=== PATIENT | female | born 1950 | race Caucasian/White ===

== ENCOUNTER 2019-11-04 10:05 | Outpatient (CLI) | payer MEDICARE, SELFPAY ==
--- NOTE | 2019-11-04 10:17 | MM_ITS ---
WS: [id number] SCREENING DIGITAL MAMMOGRAM WITH CAD HISTORY: SCREENING COMPARISON: 10/04/2018 and 10/02/2017 Bilateral CC and MLO views submitted. Computer aided detection analyzed. Breast composition: There are scattered areas of fibroglandular density. No suspicious masses, microc alcifications or architectural distortion. MM/[id number] IMPRESSION: BI-RADS: 1-Negative FOLLOW UP: 1 Year Follow-up
== END 2019-11-04 10:06 | disposition home or self-care (01) ==
LOC: RADSHAW 10:05
PROVIDERS: Family Provider Family Medicine; PCP Family Medicine; Visit Provider Family Medicine
DX: Z12.31 Encounter for screening mammogram for malignant neoplasm of breast (principal)
CPT/HCPCS: 77067

== ENCOUNTER → 2020-07-16 15:45 | Outpatient (BNVA) | payer MEDICARE, SELFPAY | PROVIDERS: Family Provider Family Medicine; PCP Family Medicine; Visit Provider Nurse Practitioner Family | DX: S69.90XA Unspecified injury of unspecified wrist, hand and finger(s), initial encounter (principal); W19.XXXA Unspecified fall, initial encounter; M19.031 Primary osteoarthritis, right wrist | CPT/HCPCS: 73110 ==

== ENCOUNTER 2021-02-09 08:41 | Outpatient (CLI) | payer MEDICARE, SELFPAY ==
--- NOTE | 2021-02-09 08:51 | MM_ITS ---
WS: [id number] BILATERAL DIGITAL SCREENING MAMMOGRAPHY WITH CAD CLINICAL INFORMATION: SCREENING HISTORY: Screening mammogram. No current complaints. COMPARISON: November 22, 2019 TECHNIQUE: Bilateral CC and MLO views. FINDINGS: Scattered fibroglandular densities bilaterally. No suspicious focal mass, asymmetry, calcifications, or architectural distortion. No evidence of malignancy. MM/[id number] IMPRESSION: BI-RADS: 1-Negative FOLLOW UP: 1 Year Follow-up Recommend return to annual screening mammography.
== END 2021-02-09 08:42 | disposition home or self-care (01) ==
PROVIDERS: PCP Family Medicine; Visit Provider Family Medicine
DX: Z12.31 Encounter for screening mammogram for malignant neoplasm of breast (principal)
CPT/HCPCS: 77067

== ENCOUNTER 2022-03-09 10:48 | Outpatient (CLI) | payer MEDICARE, SELFPAY ==
--- NOTE | 2022-03-09 10:53 | MM_ITS ---
WS: [id number] BILATERAL SCREENING DIGITAL BREAST TOMOSYNTHESIS MAMMOGRAM WITH CAD HISTORY: SCREENING COMPARISON: 10/04/2018, 10/02/2017, 02/09/2021 Bilateral CC and MLO views with tomosynthesis and synthetic mammography submitted. Computer aided det ection analyzed. Breast composition: There are scattered areas of fibroglandular density. No suspicious masses, microc alcifications or architectural distortion. No change in appearance of either breast. Mild asymmetry a nterior RIGHT breast. MM/[place] [id number] IMPRESSION: BI-RADS: 2-Benign FOLLOW UP: 1 Year Follow-up
== END 2022-03-09 10:49 | disposition home or self-care (01) ==
PROVIDERS: PCP Family Medicine; Visit Provider Family Medicine
DX: Z12.31 Encounter for screening mammogram for malignant neoplasm of breast (principal)
CPT/HCPCS: 77063; 77067

== ENCOUNTER → 2022-10-20 09:26 | Outpatient (BNVA) | payer MEDICARE, SELFPAY | PROVIDERS: PCP Family Medicine; Visit Provider Family Medicine | DX: Z13.6 Encounter for screening for cardiovascular disorders (principal); Z00.00 Encounter for general adult medical examination without abnormal findings; Z13.0 Encounter for screening for diseases of the blood and blood-forming organs and certain disorders involving the immune mechanism | CPT/HCPCS: 80053; 80061; 85025 ==

== ENCOUNTER → 2022-11-21 07:56 | Outpatient (BNVA) | payer MEDICARE, SELFPAY | PROVIDERS: PCP Family Medicine; Visit Provider Family Medicine | DX: Z00.00 Encounter for general adult medical examination without abnormal findings (principal) | CPT/HCPCS: 85025 ==

== ENCOUNTER 2022-12-21 07:46 | Oncology outpatient (recurring) (ONCR) | payer MEDICARE, SELFPAY ==
[2022-12-21 09:10] LABS: Basophils % 0.5 %; Eosinophils # 0.1 10^3/uL (0.0-0.8); Hematocrit 42.3 % (37.0-47.0); Hemoglobin 14.2 g/dL (11.5-15.3); Lymphocytes # 1.2 10^3/uL (0.8-4.8); Lymphocytes % 30.4 %; Mean Corpuscular HGB Conc 33.6 g/dL (30.0-36.0); Mean Corpuscular Hemoglobin 33.7 pg (28.0-34.0); Mean Corpuscular Volume 100.5 fl (81-99); Mean Platelet Volume 10.4 fL (7.4-10.4); Monocytes # 0.3 10^3/uL (0.2-0.9); Monocytes % 6.9 %; Neutrophils # 2.38 10^3/uL (1.8-7.7); Nucleated Red Blood Cells % 0 %; Platelet Count 197 10^3/cmm (130-400); Red Blood Count 4.21 10^6/uL (4.1-5.3)
[2022-12-21 09:18] LABS: Erythrocyte Sedimentation Rate 4 mm/hr (0-15)
[2022-12-21 09:57] LABS: LAB Peripheral Smear Sent for Review
[2022-12-21 09:58] LABS: Alanine Aminotransferase 8 U/L (0-33); Albumin Level 4.4 g/dL (3.5-5.2); Alkaline Phosphatase 66 U/L (35-105); Anion Gap 12.9 (5-19); Aspartate Amino Transferase 21 U/L (0-32); Blood Urea Nitrogen 14 mg/dL (8-23); Calcium 9.4 mg/dL (8.5-10.5); Carbon Dioxide 29 mmol/L (22-29); Chloride 102 mmol/L (98-107); Globulin 3.1 g/dL (1.3-4.6); Glucose 92 mg/dL (65-115); Lactate Dehydrogenase 184 U/L (135-214); Osmolality Calculated 290 mOsm/kg (285-295); Potassium 3.9 mmol/L (3.5-5.1); Sodium 140 mmol/L (136-145); Total Bilirubin 0.5 mg/dL (0.15-1.2); Total Protein 7.5 g/dL (6.6-8.7); Vitamin B12 467 pg/mL (232-1245)
[2022-12-23 12:55] LABS: Anti-Nuclear Antibody Screen POSITIVE (NEGATIVE)
[2022-12-23 12:59] LABS: Anti-Nuclear AB Pattern #2 Nuclear, Centromere; Anti-Nuclear Antibody Pattern Nuclear, Speckled
== END 2023-01-01 23:59 | disposition home or self-care (01) ==
PROVIDERS: PCP Family Medicine; Visit Provider Internal Medicine Medical Oncology
DX: D70.9 Neutropenia, unspecified (principal)
CPT/HCPCS: 36415; 80053; 82607; 83615; 85025; 85651; 86038; 86140; 99204

== ENCOUNTER 2023-01-18 15:25 | Outpatient (CLI) | payer MEDICARE, SELFPAY ==
--- NOTE | 2023-01-18 15:36 | XR_ITS ---
WS: [id number] DEXA (DUAL ENERGY X-RAY ABSORPTIOMETRY) Bone mineral density was performed using a deskwolf machine. HISTORY: screen osteoporosis COMPARISON: 09/29/2016 Lumbar spine BMD (L1-L4): 1.166 g/cm2 T score: -0.1 Z score: 1.6 Total hip BMD: Left: 0.978 g/cm2. T score: -0.2 Z score: 1.4 Right: 0.873 g/cm2. T score: -1.1 Z score: 0.5 10 year probability of a major osteoporotic fracture is 14.4%. Compared to the prior study from 09/29/2016. Lumbar spine bone mineral density has decreased by 3.5%. Bilateral hips bone mineral density has decreased by 7.1%. XR/XR DEXA axial skeleton* [id number] IMPRESSION: OSTEOPENIA based upon the WHO classification for females. Significant decrease in bone mineral density within both the lumbar spine and h ips since the prior study.
== END 2023-01-18 15:26 | disposition home or self-care (01) ==
PROVIDERS: PCP Family Medicine; Visit Provider Family Medicine
DX: Z13.820 Encounter for screening for osteoporosis (principal); Z78.0 Asymptomatic menopausal state; M85.80 Other specified disorders of bone density and structure, unspecified site; Z00.00 Encounter for general adult medical examination without abnormal findings
CPT/HCPCS: 77080; 85025

== ENCOUNTER → 2023-01-20 11:12 | Outpatient (BNVA) | payer MEDICARE, SELFPAY | PROVIDERS: PCP Family Medicine; Visit Provider Family Medicine | DX: M85.80 Other specified disorders of bone density and structure, unspecified site (principal) | CPT/HCPCS: 82306; 84443 ==

== ENCOUNTER → 2023-03-29 08:13 | Outpatient (BNVA) | payer MEDICARE, SELFPAY | PROVIDERS: PCP Family Medicine; Visit Provider Internal Medicine Rheumatology | DX: Z79.899 Other long term (current) drug therapy (principal); R76.8 Other specified abnormal immunological findings in serum; D70.9 Neutropenia, unspecified | CPT/HCPCS: 36415; 80076; 81001; 82565; 82570; 84156; 85025; 86160; 86162; 86235; 86255; 86376; 86800; 99204 ==

== ENCOUNTER 2023-04-05 08:09 | Outpatient (CLI) | payer MEDICARE, SELFPAY ==
--- NOTE | 2023-04-05 08:23 | MM_ITS ---
WS: [id number] BILATERAL SCREENING DIGITAL TOMOSYNTHESIS MAMMOGRAM WITH CAD HISTORY: SCREENING COMPARISON: 03/09/2022, 10/02/2017 Bilateral CC and MLO views with tomosynthesis and synthetic mammography submitted. Computer aided det ection analyzed. Breast composition: There are scattered areas of fibroglandular density. No suspicious masses, microc alcifications or architectural distortion. Asymmetry in the anterior RIGHT breast is similar to the s tudy from 2018. No interval change. No suspicious mass or calcification. MM/[place] [id number] IMPRESSION: BI-RADS: 2-Benign FOLLOW UP: 1 Year Follow-up
== END 2023-04-05 08:10 | disposition home or self-care (01) ==
LOC: RAD 08:13
PROVIDERS: PCP Family Medicine; Visit Provider Family Medicine
DX: Z12.31 Encounter for screening mammogram for malignant neoplasm of breast (principal)
CPT/HCPCS: 77063; 77067

== ENCOUNTER 2023-05-23 15:32 | Outpatient (CLI) | payer MEDICARE, SELFPAY ==
[2023-05-23 16:07] LABS: Basophils % 0.6 %; Eosinophils # 0.2 10^3/uL (0.0-0.8); Eosinophils % 3.5 %; Hematocrit 41.8 % (36-47); Lymphocytes # 1.8 10^3/uL (0.8-4.8); Lymphocytes % 36.9 %; Mean Corpuscular HGB Conc 33.5 g/dL (30-55); Mean Corpuscular Hemoglobin 34.4 pg (27-33); Mean Corpuscular Volume 102.7 fl (85-98); Mean Platelet Volume 10.2 fL (7.4-10.4); Monocytes # 0.3 10^3/uL (0.2-0.9); Monocytes % 7.1 %; Neutrophils # 2.49 10^3/uL (1.8-7.7); Neutrophils % 51.9 %; Nucleated Red Blood Cells % 0 %; Platelet Count 202 10^3/cmm (157-399); Red Blood Count 4.07 10^6/uL (3.85-5.65); Red Cell Distribution Width 12.6 % (12.1-15.1)
[2023-05-23 16:27] LABS: Alanine Aminotransferase 12 U/L (0-33); Alkaline Phosphatase 69 U/L (35-105); Aspartate Amino Transferase 19 U/L (0-32); Globulin 2.8 g/dL (1.3-4.6); Total Bilirubin 0.2 mg/dL (0.15-1.2); Total Protein 6.8 g/dL (6.6-8.7)
== END 2023-05-23 15:33 | disposition home or self-care (01) ==
PROVIDERS: PCP Family Medicine; Visit Provider Internal Medicine Rheumatology
DX: Z79.899 Other long term (current) drug therapy (principal)
CPT/HCPCS: 36415; 80076; 82565; 85025; 86140

== ENCOUNTER → 2023-11-08 09:12 | Outpatient (BNVA) | payer MEDICARE, SELFPAY | PROVIDERS: PCP Family Medicine; Visit Provider Internal Medicine Rheumatology | DX: R76.8 Other specified abnormal immunological findings in serum (principal); D72.819 Decreased white blood cell count, unspecified; E06.3 Autoimmune thyroiditis | CPT/HCPCS: 36415; 80076; 82565; 84439; 84443; 85025; 86140; 99214 ==

== ENCOUNTER → 2023-11-21 09:02 | Outpatient (BNVA) | payer MEDICARE, SELFPAY | PROVIDERS: PCP Family Medicine; Visit Provider Nurse Practitioner Family | DX: L82.0 Inflamed seborrheic keratosis (principal); D22.62 Melanocytic nevi of left upper limb, including shoulder; L81.4 Other melanin hyperpigmentation; L57.8 Other skin changes due to chronic exposure to nonionizing radiation; Z80.8 Family history of malignant neoplasm of other organs or systems | CPT/HCPCS: 17110; 99203 ==

== ENCOUNTER → 2024-02-05 15:07 | Outpatient (BNVA) | payer MEDICARE, SELFPAY | PROVIDERS: PCP Family Medicine; Visit Provider Family Medicine | DX: R76.8 Other specified abnormal immunological findings in serum (principal); Z79.899 Other long term (current) drug therapy | CPT/HCPCS: 80076; 82565; 85025; 86140 ==

== ENCOUNTER → 2024-03-18 12:56 | Outpatient (BNVA) | payer MEDICARE, SELFPAY | PROVIDERS: PCP Family Medicine; Visit Provider Nurse Practitioner Family | DX: L23.7 Allergic contact dermatitis due to plants, except food (principal); S80.922A Unspecified superficial injury of left lower leg, initial encounter; X58.XXXA Exposure to other specified factors, initial encounter | CPT/HCPCS: 99214 ==

== ENCOUNTER 2024-05-31 09:42 | Outpatient (CLI) | payer MEDICARE, SELFPAY ==
--- NOTE | 2024-05-31 09:45 | MM_ITS ---
WS: [id number] Bilateral screening 3D tomosynthesis digital mammogram, 05/31/2024 9:46 AM Clinical Data: SCREENING Comparison: 04/05/2023, 03/09/2022, 02/09/2021, 11/04/2019, 10/04/2018, 10/02/2017, 09/08/2016, 08/11/2015, 014, 07/29/2013, 07/19/2012, 05/18/2011. Findings: No spiculated masses or clustered calcifications are seen. There are no secondary signs of carcinoma . MM/MM scr BI tomosynthesis [id number] Impression: Negative bilateral mammogram unchanged. Recommend annual screening mammograms. BIRADS: 1 - Negative. FOLLOW UP: 1 Year Follow-up DENSITY: There are scattered areas of fibroglandular density. The CAD loading checker was used
== END 2024-05-31 09:43 | disposition home or self-care (01) ==
LOC: RAD 09:42
PROVIDERS: PCP Family Medicine; Visit Provider Family Medicine
DX: Z12.31 Encounter for screening mammogram for malignant neoplasm of breast (principal)
CPT/HCPCS: 77063; 77067

== ENCOUNTER 2024-11-08 17:27 | Inpatient (IN) | payer MEDICARE, SELFPAY ==
[2024-11-08 17:46] VITALS: BP 116/67; PULSE 65; RESP 18; TEMP 36.6; O2SAT 97; BMI 22.4
--- NOTE | 2024-11-08 18:23 | XRR_ITS ---
PROCEDURE INFORMATION: Exam: XR Right Hip Exam date and time: 11/08/2024 6:34 PM Age: 74 years old Clinical indication: Injury or trauma; Fall; Blunt trauma (contusions or hematomas); Right; Hip; Additional info: Injury hip TECHNIQUE: Imaging protocol: Radiologic exam of the right hip. Views: 1 view hip with pelvis when performed. COMPARISON: CR (PELVIS, ) 11/08/2024 6:28 PM FINDINGS: Bones/joints: Subcapital right hip impacted fracture. Soft tissues: Unremarkable. XR/XR hip RT 2-3V wo/w pel* [id number] IMPRESSION: Subcapital right hip impacted fracture.
--- NOTE | 2024-11-08 18:23 | XRR_ITS ---
PROCEDURE INFORMATION: Exam: XR Right Knee Exam date and time: 11/08/2024 6:36 PM Age: 74 years old Clinical indication: Injury or trauma; Fall; Blunt trauma; Hip; Right TECHNIQUE: Imaging protocol: Radiologic exam of the right knee. Views: 3 views. COMPARISON: No relevant prior studies available. FINDINGS: Bones/joints: Moderate to severe tricompartmental osteoarthritis of the knee, greatest in the medial compartment. Soft tissues: Normal. XR/XR knee RT 3V* [id number] IMPRESSION: Moderate to severe tricompartmental osteoarthritis of the knee, greatest in the medial compartment.
--- NOTE | 2024-11-08 18:23 | XRR_ITS ---
PROCEDURE INFORMATION: Exam: XR Pelvis Exam date and time: 11/08/2024 6:28 PM Age: 74 years old Clinical indication: Injury or trauma; Fall; Blunt trauma (contusions or hematomas); Right; Hip; Additional info: Fall injury TECHNIQUE: Imaging protocol: Radiologic exam of the pelvis. Views: 1 or 2 view. COMPARISON: No relevant prior studies available. FINDINGS: Bones/joints: Subcapital right hip impacted fracture. Moderate left hip osteoarthritis. Soft tissues: Unremarkable. XR/XR pelvis 1-2V* [id number] IMPRESSION: 1. Subcapital right hip impacted fracture. 2. Moderate left hip osteoarthritis.
--- NOTE | 2024-11-08 18:24 | W.ED.EXTPRO ---
HPI - Extremity Problem General: Chief complaint: Extremity Injury, Lower Stated complaint: fell-right leg pain Time Seen by Provider: 11/08/24 17:58 History of Present Illness: 74-year-old female comes in today for complaints of injury to the right lower extremity. Patient reports pain to the right upper leg. Patient reports missing her step when using a stepstool causing her to fall onto her right side. Patient does have a history of hip replacement to the left side. Patient otherwise is a healthy individual and stays very active. Patient reports pain is worse with weightbearing. Related Data Home Medications ?Medication ?Instructions ?Recorded ?Confirmed cholecalciferol (vitamin D3) 50 50 mcg PO DAILY 12/21/22 03/17/24 mcg (2,000 unit) capsule omega 0-nmh-tzm-fish oil 60 mg-90 1 cap PO DAILY 12/21/22 03/17/24 mg-500 mg capsule (Fish Oil) Previous Rx's ?Medication ?Instructions ?Recorded prednisone 20 mg tablet 20 mg PO DAILY 5 days #5 tabs 03/17/24 sulfamethoxazole 800 1 tab PO BID 7 days #14 tabs 03/17/24 mg-trimethoprim 160 mg tablet (Bactrim DS) Allergies Allergy/AdvReac Type Severity Reaction Status Date / Time No Known Allergies Allergy Verified 03/17/24 10:09 Review of Systems General: Reports: 10 or more systems reviewed and unremarkable except in HPI and below PFSH ED PFSH: Medical History Thyroglobulin antibody positive Leukopenia Osteopenia Surgical History History of hip surgery Left hip fracture repaired - pin placed and removed one year later. History of tonsillectomy Family History Mother CAD (coronary artery disease) Father CAD (coronary artery disease) Brother Melanoma Other Cancer Hypertension Lung disease Rheumatoid arthritis Denies family history of Diabetes Lupus Chronic kidney disease (CKD) Stroke Social History Smoking and tobacco/nicotine status: never used tobacco/nicotine Alcohol intake: never Substance/Drug Use: never Current occupational status: retired Previous occupational history: dfs worker Physical Exam Const: COMMON NORMALS: alert HENMT: COMMON NORMALS: normocephalic HEAD & SCALP: normocephalic Neck/C-Spine: COMMON NORMALS: full ROM Resp: COMMON NORMALS: normal respiratory effort Back/Pelvis: COMMON NORMALS: thoracic and lumbar spine normal to inspection Extremity: RIGHT LOWER EXTREMITY: Yes hip joint OTHER: Pain seems to be aggravated with hip movement. Neuro: SENSORIUM/ORIENTATION: Yes alert Course Vital Signs: Vital signs: Vital Signs Temperature 97.9 F 11/08/24 17:46 Pulse Rate 65 11/08/24 17:46 Respiratory Rate 18 11/08/24 17:46 Blood Pressure 116/67 11/08/24 17:46 Pulse Oximetry 97 11/08/24 17:46 Oxygen Delivery Me thod Room Air 11/08/24 17:46 MDM - Extremity (Nontraumatic) Medical Decision Making 74-year-old female comes in today for injury to the right upper leg. Patient reports missing a step on her stepstool causing her to fall onto her right side. Differential diagnosis includes fracture, dislocation, contusion. 191, spoke with Dr. Sawant who accepted patient for orthopedics to plan for hip fracture repair in the morning. He requested medical services for admission. Talked with Dr. Puentes who accepted patient to medicine and admission. Dr. Martin attending ER physician placed orders of admit. Lab Data Radiology Impressions Hip/Pelvis X-Ray 11/08/24 18:23 IMPRESSION: Subcapital right hip impacted fracture. Knee X-Ray 11/08/24 18:23 IMPRESSION: Moderate to severe tricompartmental osteoarthritis of the knee, greatest in the medial compartment. Pelvis X-Ray 11/08/24 18:23 IMPRESSION: 1. Subcapital right hip impacted fracture. 2. Moderate left hip osteoarthritis. All radiology interpretation(s) finalized by discharge Discharge Plan Discharge Patient Disposition: Admitted As Inpatient Clinical Impression: Subcapital fracture of right hip Qualifiers: Encounter type: initial encounter Fracture type: closed Qualified Code(s): S72.011A - Unspecified intracapsular fracture of right femur, initial encounter for closed fracture Condition: Stable Coding Level of Care Code ED Pediatric Nephrologist for Angelica Wheat
--- NOTE | 2024-11-08 19:10 | XRR_ITS ---
PROCEDURE INFORMATION: Exam: XR Chest Exam date and time: 11/08/2024 7:22 PM Age: 74 years old Clinical indication: Injury or trauma; Fall; Blunt trauma (contusions or hematomas); Additional info: Pre-op TECHNIQUE: Imaging protocol: Radiologic exam of the chest. Views: 1 view. COMPARISON: No relevant prior studies available. FINDINGS: Lungs: Emphysematous changes. Pleural spaces: Unremarkable. No pleural effusion. No pneumothorax. Heart/Mediastinum: Unremarkable. No cardiomegaly. Bones/joints: Unremarkable. XR/XR chest 1V portable [id number] IMPRESSION: 1. Negative for infiltrate. 2. Emphysematous changes.
[2024-11-08 20:04] LABS: Basophils % 0.5 %; Eosinophils # 0.1 10^3/uL (0.0-0.8); Eosinophils % 1.5 %; Hematocrit 39.7 % (36-47); Lymphocytes # 1.5 10^3/uL (0.8-4.8); Lymphocytes % 24.4 %; Mean Corpuscular HGB Conc 33.8 g/dL (30-55); Mean Corpuscular Hemoglobin 33.6 pg (27-33); Mean Corpuscular Volume 99.5 fl (85-98); Mean Platelet Volume 10.6 fL (7.4-10.4); Monocytes # 0.4 10^3/uL (0.2-0.9); Monocytes % 6.5 %; Neutrophils % 66.9 %; Nucleated Red Blood Cells % 0 %; Platelet Count 150 10^3/cmm (157-399); Red Blood Count 3.99 10^6/uL (3.85-5.65); White Blood Count 5.98 10^3/uL (3.29-11.43)
[2024-11-08] MEDS: HYDROcodone-acetaminophen 5-325 mg Tablet 1 TAB PO (20:16)
[2024-11-08 20:19] VITALS: BMI 22.4
[2024-11-08 20:21] LABS: Alanine Aminotransferase 8 U/L (0-33); Albumin Level 4.2 g/dL (3.5-5.2); Alkaline Phosphatase 69 U/L (35-105); Anion Gap 14.1 (5-19); Aspartate Amino Transferase 20 U/L (0-32); Blood Urea Nitrogen 18 mg/dL (8-23); Calcium 9.3 mg/dL (8.5-10.5); Carbon Dioxide 24 mmol/L (22-29); Chloride 103 mmol/L (98-107); Creatinine Clr Calc Pharmacy 58.0317; Globulin 2.2 g/dL (1.3-4.6); Glucose 104 mg/dL (65-115); Osmolality Calculated 286 mOsm/kg (285-295); Potassium 4.1 mmol/L (3.5-5.1); Sodium 137 mmol/L (136-145); Total Bilirubin 0.5 mg/dL (0.15-1.2); Total Protein 6.4 g/dL (6.6-8.7)
[2024-11-08 21:11] VITALS: BP 135/74; PULSE 63; RESP 18; TEMP 36.5; O2SAT 96
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
[2024-11-08 22:10] VITALS: PULSE 62; RESP 18; O2SAT 93
--- NOTE | 2024-11-08 22:10 | ECG_ITS ---
[facility]: 2024-11-08 Pat Name: Arline Ramírez Department: Room: 269 Gender: Female Coffee Grinder: : 1950 Requested By: Milan Puentes Order Number: [id number] Roberts MD: Soto Kay M.D. Measurements Intervals [place] Rate: 62 P: 60 TX: 173 QRS: -8 QRSD: 87 T: 16 QT: 396 QTc: 404 Interpretive Statements SINUS RHYTHM POSSIBLE ANTERIOR MYOCARDIAL INFARCTION , PROBABLY OLD [30 ms Q WAVE IN V3/V4, OR R < 0.2 mV IN V4] No previous ECG available for comparison Electronically Signed On 11-09-2024 19:28:30 CLOTHING CUTTER by Soto Kay M.D. [email or web address]
[2024-11-08 23:31] LABS: Bilirubin Urine Negative (Negative); Blood Urine Negative (Negative); Glucose Urine UA Negative (Normal); Ketones Urine 1+ (Negative); Leukocyte Esterase Urine Negative (Negative); Nitrate Urine Negative (Negative); Protein Urine Negative (Negative); Specific Gravity, Urine 1.027 (1.005-1.030); Urine Appearance Clear (CLEAR); Urine Color Yellow (Yellow); pH Urine 5.5 (5-7)
[2024-11-08 23:34] LABS: Add Urine Microscopic? YES; Bacteria Urine None Seen /hpf; Hyaline Casts Urine 2.05 /lpf; RBC Urine 0-2 /hpf (0-2); Squamous Epithelial Cell Urine 0-5 /hpf (0-5); Universal Test for UA Present (0); WBC Urine 0-5 /hpf (0-5)
[2024-11-08] MEDS: zolpidem 5 mg Tablet PO (23:37)
[2024-11-08 23:54] LABS: Add Urine Culture? No; Mucus Urine 2+ /hpf
[2024-11-09] VITALS (17 sets, daily range): BP systolic 99–135; BP diastolic 58–74; PULSE 60–79; RESP 14–18; TEMP 36.4–36.8; O2SAT 92–100; BMI 22.4
[2024-11-09 04:34] LABS: Basophils % 0.5 %; Eosinophils # 0.2 10^3/uL (0.0-0.8); Eosinophils % 4.2 %; Hematocrit 35.3 % (36-47); Lymphocytes # 1.3 10^3/uL (0.8-4.8); Lymphocytes % 30.6 %; Mean Corpuscular HGB Conc 34.6 g/dL (30-55); Mean Corpuscular Hemoglobin 34.8 pg (27-33); Mean Corpuscular Volume 100.6 fl (85-98); Mean Platelet Volume 10.3 fL (7.4-10.4); Monocytes # 0.3 10^3/uL (0.2-0.9); Monocytes % 7.8 %; Neutrophils # 2.33 10^3/uL (1.8-7.7); Neutrophils % 56.9 %; Nucleated Red Blood Cells % 0 %; Platelet Count 127 10^3/cmm (157-399); Red Blood Count 3.51 10^6/uL (3.85-5.65); Red Cell Distribution Width 12.1 % (12.1-15.1); White Blood Count 4.09 10^3/uL (3.29-11.43)
[2024-11-09 04:54] LABS: Anion Gap 11.8 (5-19); Blood Urea Nitrogen 13 mg/dL (8-23); Calcium 8.9 mg/dL (8.5-10.5); Carbon Dioxide 27 mmol/L (22-29); Chloride 103 mmol/L (98-107); Creatinine Clr Calc Pharmacy 58.0317; Glucose 92 mg/dL (65-115); Magnesium 1.7 mg/dL (1.7-2.3); Osmolality Calculated 286 mOsm/kg (285-295); Potassium 3.8 mmol/L (3.5-5.1); Sodium 138 mmol/L (136-145)
--- NOTE | 2024-11-09 08:34 | PC.NURSE ---
SCDs pt is educated on medical reason for use of scd's. pt requested a break from wearing them, off at this time.
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
--- NOTE | 2024-11-09 10:45 | PC.CHAP ---
Pastoral Care Encounter/Spiritual Assessment Type of Contact [] Declined wood machinist visit [] Patient/Family/Request visit [] Outpatient visit [] Follow-up visit [] Physician referral [] Code/Alert [X] Routine visit [] Staff referral [] Actively dying [] Patient sleeping [] Family support [] [] Out of room [] Palliative care [] [] Receiving care in room [] Pre-surgical visit [] Trauma [] Long length of stay [] ICU visit [] Other: Relational/Emotional Strength [X] Patient feels connected with others/family/visitors/staff [] Distress [] Loneliness/isolation [] Abandonment Spirituality of Patient [X] Person of Marissa [X] Attends Amish of their Marissa [X] Believes in Prayer [X] Reads Bible or Scientology materials [] There are Spiritual issues to be addressed Mine Inspector Interventions [X] Prayer [X] Active listening [X] Non-anxious presence [X] Spiritual/emotional support [] Crisis/trauma care [] Spiritual counseling [] Bereavement support [] Provided bereavement packet [] Provided Bible/devotional materials [] Provided toy/stuffed animal, coloring book to patient or family member [] Provided Communion [] Anointing/Whick [] Salvation [] Completed spiritual assessment [] Other: Impact on Illness or Injury [] Angry [] Fearful [] Anxious [] Often cries [] Exhaustion [] Unable to work [] Unable to attend yazidi [X] Unable to walk/stand [] Unable to read [] Unable to drive [] Unable to eat/drink [] Unable to sleep [] Unable to be with family [] Patient intubated [] Other: Summary P Time spent with patient 1 hr
--- NOTE | 2024-11-09 10:46 | ANES.PREANE2 ---
Pre-Anesthetic Assessment Height/Weight: Height 1.65 m Weight 61.263 kg Temp Pulse Resp BP Pulse Ox O2 Del Method 98.3 F 66 15 118/70 96 Room Air 11/09/24 08:00 11/09/24 08:00 11/09/24 08:00 11/09/24 08:00 11/09/24 08:00 11/09/24 08:00 Preop Diagnosis: Right hip fracture Operation Date: 11/09/24 11:30 Proposed Procedures p Hemiarthroplasty Hip(Right) - Jesús Sawant MD Familial anesthetic complications: None Was Beta Terry taken within 24 hours: N/A Was Clonidine taken within 24 hours: N/A Last intake: Intake Last Liquid Date 11/08/24 Last Liquid Time 23:30 Last Solid Date 11/08/24 Last Solid Time 23:00 Social No alcohol and No tobacco Exam alert, oriented x 3, clear to auscultation bilaterally and regular rate & rhythm Airway Mallampati: Class I Dentition: full Anesthetic Plan ASA status: 1 Anesthesia: General Risk of > 500 ml blood loss (7ml/kg in children): No Medications/Allergies Home Medications ?Medication ?Instructions ?Recorded ?Confirmed ?Last Taken ?Type cholecalciferol (vitamin D3) 50 50 mcg PO DAILY 12/21/22 11/09/24 Unknown History mcg (2,000 unit) capsule omega 8-gri-bmn-fish oil 60 mg-90 1 cap PO DAILY 12/21/22 11/09/24 Unknown History mg-500 mg capsule (Fish Oil) Allergies Allergy/AdvReac Type Severity Reaction Status Date / Time No Known Allergies Allergy Verified 03/17/24 10:09 Current Medications Generic Name Dose Route Start Last Admin Trade Name Freq PRN Reason Stop Dose Admin Zolpidem Tartrate 5 mg 11/08/24 22:11 11/08/24 23:37 Zolpidem 5 Mg Tablet PO 5 mg BEDTIME PRN Administration INSOMNIA PFSH Anesthesia Medical History Thyroglobulin antibody positive Leukopenia Osteopenia Surgical History History of hip surgery Left hip fracture repaired - pin placed and removed one year later. History of tonsillectomy Family History Mother CAD (coronary artery disease) Father CAD (coronary artery disease) Brother Melanoma Other Cancer Hypertension Lung disease Rheumatoid arthritis Denies family history of Diabetes Lupus Chronic kidney disease (CKD) Stroke Social History Smoking and tobacco/nicotine status: never used tobacco/nicotine Alcohol intake: never Substance/Drug Use: never Current occupational status: retired Previous occupational history: dfs worker Data Anesthesia 11/09/24 04:24 11/09/24 04:24 Short CBC 11/08/24 11/09/24 Range/Units 19:46 04:24 WBC 5.98 4.09 (3.29-11.43) 10^3/uL Hgb 13.40 12.20 (11.27-16.99) g/dL Hct 39.7 35.3 L (36-47) % MCV 99.5 H 100.6 H (85-98) fl Plt Count 150 L 127 L (157-399) 10^3/cmm Neut % (Auto) 66.9 56.9 % Neut # (Auto) 4.00 2.33 (1.8-7.7) 10^3/uL BMP 11/08/24 11/09/24 19:46 04:24 Sodium 137 138 Potassium 4.1 3.8 Chloride 103 103 Carbon Dioxide 24 27 BUN 18 13 Creatinine 0.5 0.6 Glucose 104 92 Calcium 9.3 8.9 Liver Function 11/08/24 Range/Units 19:46 Total Bilirubin 0.5 (0.15-1.2) mg/dL AST 20 (0-32) U/L ALT 8 (0-33) U/L Alkaline Phosphatase 69 (35-105) U/L Albumin 4.2 (3.5-5.2) g/dL Urine 11/08/24 Range/Units 23:23 Urine Color Yellow (Yellow) Urine Appearance Clear (CLEAR) Urine pH 5.5 (5-7) Ur Specific [place] 1.027 (1.005-1.030) Urine Protein Negative (Negative) Urine Glucose (UA) Negative (Normal) Urine Ketones 1+ H (Negative) Urine Nitrate Negative (Negative) Urine Bilirubin Negative (Negative) Ur Leukocyte Esterase Negative (Negative) Urine RBC 0-2 (0-2) /hpf Urine WBC 0-5 (0-5) /hpf Cardiac Studies: No Data to Display
[2024-11-09] MEDS: ceFAZolin 2,000 mg SDV 2000 MG IVP ×2 (11:14→17:50)
--- NOTE | 2024-11-09 12:54 | PM.OP ---
Operative Report Date of procedure: November 09, 2024 Surgeon: Jesús Sawant MD Procedure: Preop diagnosis: Subcapital fracture right hip Postop diagnosis: Same Procedure: Bipolar endoprosthetic replacement right hip Surgeon: Jesús Sawant MD Anesthesia: General EBL: 50 cc Complications: None Indications: Arline is a 74-year-old white female who fell at home yesterday after climbing up on a stool and losing her balance. She landed on her right side had some pain difficulty. However she is able to get up and ambulate and run errands before pain became so debilitating that she was finally seen at the emergency room at [facility]. X-rays there demonstrated a subcapital fracture of the femoral head on the right hip and therefore she was admitted to the hospital service and orthopedic consultation was obtained. After initial evaluation reviewed the x-rays is felt patient would most benefit from bipolar endoprosthetic replacement of her right hip to regain her function and get her back to an ambulatory status more quickly. All risk benefits treatment alternatives were discussed with her and she is agreeable to this at this time. Procedure: After obtaining her consent patient taken to the operating room and while still on her hospital bed generalized segments are. Once good anesthesia achieved patient placed over on the surgical table and then put up in a lateral decubitus position with right hip up. Pegboard supports were used to hold her in place and were padded appropriately. Right leg and hip were prepped and draped usual fashion. After surgical timeout hip was flexed to 90 degrees and minimally invasive lateral approach to the hip was made with #10 blade directly over the proximal portion of the greater trochanter. Sharp dissect taken on down to subcutaneous tissue electrocautery was hemostasis. Further dissect was taken all the way down to the greater trochanteric bursa and fascia was divided longitudinally from there. Self-retaining retractors were placed in the area to expose the area leg was gently internally rotated. Electrocautery was used to dissect along the posterior aspect of the greater trochanter down to the femoral neck raising all the soft tissue. Capsule was opened up in a T-type fashion. Piriformis was removed from the greater trochanter also. Leg was internally rotated to 90 degrees and femoral neck was exposed. Femoral neck was templated with a femoral template guide. Sagittal saw was then used to make neck cut at appropriate level. Bone fragments were removed with a rongeur. At this point femoral head was removed with a bone scoop. It was sized to size 44 femoral head. Trial femoral head was then placed down into the acetabulum and found to have adequate fit and fill. At this point retractors placed underneath the proximal femur to raise it up out of the incision line. Box cut osteotome was used to make entry point. Hand reaming was then done down the canal. In stepwise fashion starting with a 0 femoral broach broaching was done with appropriate anteversion applied to it. This was done all the way up until a size 3 broach was found to have adequate fit and fill and good stability. Subsequently a permanent size 3 Yadira femoral stem was placed and impacted with appropriate anteversion. At this point trial bipolar head and neck were placed on this and found to have a standard neck with a 44 mm head to be adequate length. There is good stability would put the range of motion. And therefore the trial head was removed. Areas washed with copious amounts of bulb irrigation. Stasis was dried. A size 28 ceramic head that was placed inside a 44 mm external head was placed on the Moore taper of the femoral neck and impacted. There was secured well. Hip was reduced and hip was put through range of motion found to be stable. Leg was then bumped up at the knee to bring it out straight. Gently internally rotated and the joint capsule was repaired with #1 Vicryl jqozpt-qq-[id number] sutures. At this point through small drill holes to the posterior aspect of the greater trochanter #5 Ethibond was placed through and down through the piriformis stump in a krqihj-kn-snbvn fashion and backup through the second drill hole and tied over the bony surface of the posterior lateral portion of the greater trochanter. Wound is washed again with sterile irrigation. Deep fascia was closed with 0 Vicryl hgbqww-[id number] suture subcutaneous tissue reapproximated 0 Vicryl interrupted sutures and skin was closed with skin jacob. An occlusive hip dressing was applied as well as the abduction pillow. Patient was awakened transferred to cover him in stable condition
--- NOTE | 2024-11-09 12:58 | XRR_ITS ---
PROCEDURE INFORMATION: Exam: XR Pelvis Exam date and time: 11/09/2024 1:00 PM Age: 74 years old Clinical indication: Screening exam; Prior surgery; Surgery date: Post-operative (0-2 days); Surgery type: Post op RT hemiarthroplasty TECHNIQUE: Imaging protocol: Radiologic exam of the pelvis. Views: 1 or 2 view. COMPARISON: CR (PELVIS, ) 11/08/2024 6:34 PM FINDINGS: Bones/joints: Interval right hip replacement in anatomic position with no complication evident. Mild degenerative change of the left hip and sacroiliac joints again seen. Soft tissues: Skin staple line is present. XR/XR pelvis 1-2V* [id number] IMPRESSION: Interval right hip replacement without complication.
--- NOTE | 2024-11-09 13:15 | ANE.PACU2 ---
Inpatient post-anesthesia follow up: Airway intact: Yes Vital signs: Temperature 97.6 F Pulse Rate 66 Respiratory Rate 16 Blood Pressure 120/72 Pulse Oximetry 100 Oxygen Delivery Me thod Room Air Oxygen Flow Rate Fraction of Inspir ed Oxygen Hydration adequate: Yes Nausea and vomiting: No Pain level: 1 Mental status: Baseline
[2024-11-09] MEDS: chlorhexidine gluconate 0.12% Btl 473 mL 30 ML MUCOUS MEM ×3 (14:03→21:02)
--- NOTE | 2024-11-09 15:57 | P.PN_ITS ---
Subjective 2 Subjective: Patient is in the operating room at the time of rounds this morning. Will be attempted to be seen postop. Medications: Reviewed: Yes Vitals/I&O/Wt Last Vital Signs Temp 97.6 F 11/09/24 14:20 Pulse 66 11/09/24 14:20 Resp 16 11/09/24 14:20 BP 120/72 11/09/24 14:20 Pulse Ox 100 11/09/24 14:20 O2 Del Method Room Air 11/09/24 14:20 11/09/24 11/09/24 11/09/24 06:59 14:59 22:59 Intake Total 0 / 0 Output Total 35 / 35 150 / 150 Balance -35 / -35 -150 / -150 Weight last 48 hrs Weight 61.263 kg Weight 61.235 kg Weight 61.235 kg Physical Exam 2 Narrative: Patient is currently in the OR at time of rounds. Urinary Catheter Management: Lorenzana: Cath Placed During This Visit: yes Reason for Continuing Indwelling Catheter: Perioperative Use in Selected Surgeries Urinary Catheter Date of Insertion: 11/08/24 Urinary Catheter Time of Insertion: 23:20 Data 11/09/24 04:24 11/09/24 04:24 A&P Assessment and plan (1) Osteopenia: (2) Thyroglobulin antibody positive: (3) Positive TERESSA (antinuclear antibody): (4) Subcapital fracture of right hip: Qualifiers: Encounter type: initial encounter Fracture type: closed Qualified Code(s): S72.011A - Unspecified intracapsular fracture of right femur, initial encounter for closed fracture Plan Right hip fracture Ground-level mechanical fall No syncope or chest pain or seizure related activity Patient very active for her age No preoperative cardiac workup indicated at this point no previous history of [place] CHF diabetes or chronic kidney disease RCRI class I risk Will request an EKG Patient lives alone, active for age N.p.o. for now Opioids with bowel regimen Hemodynamic stable Requested Lorenzana catheter placement as well Chronic history of leukopenia: Currently no signs of neutropenia hemoglobin stable: Platelets 150,000 DVT prophylaxis: SCDs Patient may benefit from bisphosphonates at the time of discharge November 09, 2024 Patient is in the OR currently for bipolar endoprosthetic replacement right hip. Overnight labs and H& P reveiwed. Will attempt to see patient again post opertaively PDMP PDMP Reviewed: Not Reviewed Attestations 2 Medical Necessity Statement*: planned surgical intervnetion today Coding Level of Care Code Acute Code for Chg Fwd Diagnoses Osteopenia M85.80 Thyroglobulin antibody positive R76.8 Positive TERESSA (antinuclear antibody) R76.8 Subcapital fracture of right hip S72.011A Encounter type: initial encounter Fracture type: closed
[2024-11-09] MEDS: mupirocin oint 22 gm 1 APPLIC NASAL (17:49)
[2024-11-09] MEDS: calcium carbonate 500 mg Chew Tablet 1000 MG PO (17:50)
[2024-11-09] MEDS: iron polysaccharide complex 150 mg Capsule PO (17:50)
[2024-11-09] MEDS: ketorolac 30 mg/mL INJ 15 MG IVP (17:51)
[2024-11-09] MEDS: sennosides-docusate Tablet 2 TAB PO (17:51)
[2024-11-09] MEDS: ALPRAZolam 0.5 mg Tablet 0.25 MG PO (21:01)
[2024-11-10] VITALS (7 sets, daily range): BP systolic 90–107; BP diastolic 51–63; PULSE 66–88; RESP 15–18; TEMP 36.4–37.1; O2SAT 93–98
[2024-11-10] MEDS: ceFAZolin 2,000 mg SDV 2000 MG IVP ×2 (03:15→11:31)
[2024-11-10 04:21] LABS: Basophils % 0.1 %; Hematocrit 34.2 % (36-47); Lymphocytes # 0.7 10^3/uL (0.8-4.8); Lymphocytes % 9.1 %; Mean Corpuscular HGB Conc 33.9 g/dL (30-55); Mean Corpuscular Hemoglobin 34.1 pg (27-33); Mean Corpuscular Volume 100.6 fl (85-98); Monocytes # 0.4 10^3/uL (0.2-0.9); Monocytes % 5.6 %; Neutrophils # 6.41 10^3/uL (1.8-7.7); Neutrophils % 84.9 %; Nucleated Red Blood Cells % 0 %; Platelet Count 136 10^3/cmm (157-399); White Blood Count 7.55 10^3/uL (3.29-11.43)
[2024-11-10 04:40] LABS: Blood Urea Nitrogen 17 mg/dL (8-23); Calcium 8.3 mg/dL (8.5-10.5); Carbon Dioxide 26 mmol/L (22-29); Chloride 100 mmol/L (98-107); Creatinine Clr Calc Pharmacy 58.0427; Glucose 228 mg/dL (65-115); Osmolality Calculated 285 mOsm/kg (285-295); Sodium 133 mmol/L (136-145)
[2024-11-10] MEDS: iron polysaccharide complex 150 mg Capsule PO ×2 (08:52→17:34)
[2024-11-10] MEDS: multivitamin therapeutic Tablet 1 TAB PO (08:52)
[2024-11-10] MEDS: omega-3 fatty acids 1,000 mg Capsule 1000 MG PO (08:52)
[2024-11-10] MEDS: mupirocin oint 22 gm 1 APPLIC NASAL ×2 (08:53→18:44)
[2024-11-10] MEDS: calcium carbonate 500 mg Chew Tablet 1000 MG PO ×2 (08:53→17:34)
[2024-11-10] MEDS: cholecalciferol (vitamin D3) 1,000 unit Tablet 1000 UNIT PO (08:53)
[2024-11-10] MEDS: aspirin 325 mg EC Tablet PO (08:53)
[2024-11-10] MEDS: sennosides-docusate Tablet 2 TAB PO ×2 (08:54→17:33)
[2024-11-10] MEDS: chlorhexidine gluconate 0.12% Btl 473 mL 30 ML MUCOUS MEM ×4 (08:54→20:27)
--- NOTE | 2024-11-10 11:43 | P.PN_ITS ---
Subjective 2 Subjective: Patient is awake and alert. States that she has some aches and pains in the right hip as expected status post endoprosthetic replacement of her hip. She has recently gotten up to the commode but has not put much weight down on this leg. She has not had physical therapy yet Medications: Reviewed: Yes Vitals/I&O/Wt Last Vital Signs Temp 98.0 F 11/10/24 08:19 Pulse 88 11/10/24 09:04 Resp 18 11/10/24 09:04 BP 95/53 11/10/24 08:19 Pulse Ox 96 11/10/24 09:04 O2 Del Method Room Air 11/10/24 09:04 11/09/24 11/10/24 11/10/24 22:59 07:59 14:59 Intake Total 240 / 240 240 / 240 Output Total 200 / 350 1025 / 1375 Balance 40 / -110 -1025 / -1135 240 / 240 Weight last 48 hrs Weight 136 lb 6.4 oz Weight 135 lb 1 oz Weight 135 lb Weight 135 lb Physical Exam 2 Narrative: On exam today she is neurovascular tact right lower extremity. Dressings are clear Urinary Catheter Management: Lorenzana: Cath Placed During This Visit: yes, but has since been removed by the nurse Reason for Continuing Indwelling Catheter: Required Immobilization for Trauma or Surgery or Anesthesia Urinary Catheter Date of Insertion: 11/08/24 Urinary Catheter Time of Insertion: 23:20 Date Urinary Catheter Removed: 11/10/24 Time Urinary Catheter Discontinued: 05:42 Data 11/10/24 03:51 11/10/24 03:51 A&P Assessment and plan (1) Subcapital fracture of right hip: Patient postop day 1 from bipolar endoprosthetic replacement on the right hip. Tolerated this well. Qualifiers: Encounter type: initial encounter Fracture type: closed Qualified Code(s): S72.011A - Unspecified intracapsular fracture of right femur, initial encounter for closed fracture Plan Plan at this time is to continue with physical therapy, pain control, dressing changes as needed. Subsequently make arrangements for her to return home with more likely needing home health. Patient does states she has plenty of family members again help to PDMP PDMP Reviewed: Not Reviewed Attestations 2 Medical Necessity Statement*: Status post right hip surgery secondary to fracture. In need of pain control, physical therapy to relearn ambulation, help with ADLs Coding Level of Care Code 08739 Diagnoses Subcapital fracture of right hip S72.011A Encounter type: initial encounter Fracture type: closed
[2024-11-10] MEDS: ketorolac 30 mg/mL INJ 15 MG IVP (13:19)
--- NOTE | 2024-11-10 16:59 | P.PN_ITS ---
Subjective 2 Subjective: No acute complaints. Patient reports that pain is currently under control. She has been using mostly Toradol for pain management. Medications: Reviewed: Yes Vitals/I&O/Wt Last Vital Signs Temp 98.0 F 11/10/24 08:19 Pulse 88 11/10/24 09:04 Resp 18 11/10/24 09:04 BP 95/53 11/10/24 08:19 Pulse Ox 96 11/10/24 09:04 O2 Del Method Room Air 11/10/24 09:04 11/10/24 11/10/24 11/10/24 07:59 14:59 22:59 Intake Total 600 / 600 Output Total 1025 / 1375 Balance -1025 / -1135 600 / 600 Weight last 48 hrs Weight 61.87 kg Weight 61.263 kg Weight 61.235 kg Weight 61.235 kg Physical Exam 2 Narrative: General: No acute distress, AO x3 HEENT: PERRLA, pupils bilaterally equal and reactive, pallors not present Chest: Normal vesicular breath sounds, no added sounds, equal good air entry bilaterally CVS: S1-S2 regular, no murmurs, no tachycardia, no gallops, no rubs Abdomen: Soft, nontender, no organomegaly, bowel sounds present Neuro: No focal deficits, no facial deformity, AO x3, power 5/5 in all limbs Urinary Catheter Management: Lorenzana: Cath Placed During This Visit: yes, but has since been removed by the nurse Reason for Continuing Indwelling Catheter: Required Immobilization for Trauma or Surgery or Anesthesia Urinary Catheter Date of Insertion: 11/08/24 Urinary Catheter Time of Insertion: 23:20 Date Urinary Catheter Removed: 11/10/24 Time Urinary Catheter Discontinued: 05:42 Data 11/10/24 03:51 11/10/24 03:51 A&P Assessment and plan (1) Osteopenia: (2) Thyroglobulin antibody positive: (3) Positive TERESSA (antinuclear antibody): (4) Subcapital fracture of right hip: Qualifiers: Encounter type: initial encounter Fracture type: closed Qualified Code(s): S72.011A - Unspecified intracapsular fracture of right femur, initial encounter for closed fracture Plan Right hip fracture Ground-level mechanical fall No syncope or chest pain or seizure related activity Patient very active for her age No preoperative cardiac workup indicated at this point no previous history of [place] CHF diabetes or chronic kidney disease RCRI class I risk Will request an EKG Patient lives alone, active for age N.p.o. for now Opioids with bowel regimen Hemodynamic stable Requested Lorenzana catheter placement as well Chronic history of leukopenia: Currently no signs of neutropenia hemoglobin stable: Platelets 150,000 DVT prophylaxis: SCDs Patient may benefit from bisphosphonates at the time of discharge November 09, 2024 Patient is in the OR currently for bipolar endoprosthetic replacement right hip. Overnight labs and H& P reveiwed. Will attempt to see patient again post opertaively November 10, 2024 Status post hip surgery yesterday. No acute complaints today. States that pain is well-controlled. Requesting Xanax again at night as it helped her sleep well. DVT prophylaxis with aspirin 325 mg p.o. daily. Awaiting physical therapy assessment to ascertain appropriate disposition. PDMP PDMP Reviewed: Not Reviewed Attestations 2 Medical Necessity Statement*: Continued need for assessment by physical therapy, appropriate disposition planning Coding Level of Care Code Acute Code for Chg Fwd Diagnoses Osteopenia M85.80 Thyroglobulin antibody positive R76.8 Positive TERESSA (antinuclear antibody) R76.8 Subcapital fracture of right hip S72.011A Encounter type: initial encounter Fracture type: closed
[2024-11-10] MEDS: ALPRAZolam 0.5 mg Tablet 0.25 MG PO (20:26)
[2024-11-11] VITALS (7 sets, daily range): BP systolic 105–115; BP diastolic 59–68; PULSE 67–82; RESP 15–18; TEMP 36.6–36.9; O2SAT 94–96
[2024-11-11 03:08] LABS: Basophils % 0.3 %; Eosinophils # 0.1 10^3/uL (0.0-0.8); Eosinophils % 0.6 %; Hematocrit 31.9 % (36-47); Lymphocytes # 1.7 10^3/uL (0.8-4.8); Lymphocytes % 21.2 %; Mean Corpuscular HGB Conc 33.9 g/dL (30-55); Mean Corpuscular Hemoglobin 33.5 pg (27-33); Mean Corpuscular Volume 99.1 fl (85-98); Mean Platelet Volume 10.8 fL (7.4-10.4); Monocytes # 0.5 10^3/uL (0.2-0.9); Monocytes % 6.8 %; Neutrophils % 70.8 %; Nucleated Red Blood Cells % 0 %; Platelet Count 144 10^3/cmm (157-399); Red Blood Count 3.22 10^6/uL (3.85-5.65); Red Cell Distribution Width 12.3 % (12.1-15.1); White Blood Count 7.77 10^3/uL (3.29-11.43)
[2024-11-11 03:33] LABS: Alanine Aminotransferase < 5 U/L (0-33); Albumin Level 3.1 g/dL (3.5-5.2); Alkaline Phosphatase 59 U/L (35-105); Aspartate Amino Transferase 20 U/L (0-32); Blood Urea Nitrogen 20 mg/dL (8-23); Calcium 9.1 mg/dL (8.5-10.5); Carbon Dioxide 30 mmol/L (22-29); Chloride 104 mmol/L (98-107); Creatinine Clr Calc Pharmacy 58.2828; Globulin 2.4 g/dL (1.3-4.6); Glucose 113 mg/dL (65-115); Osmolality Calculated 293 mOsm/kg (285-295); Sodium 140 mmol/L (136-145); Total Bilirubin 0.4 mg/dL (0.15-1.2); Total Protein 5.5 g/dL (6.6-8.7)
[2024-11-11] MEDS: cholecalciferol (vitamin D3) 1,000 unit Tablet 1000 UNIT PO (09:36)
[2024-11-11] MEDS: multivitamin therapeutic Tablet 1 TAB PO (09:36)
[2024-11-11] MEDS: calcium carbonate 500 mg Chew Tablet 1000 MG PO ×2 (09:36→18:04)
[2024-11-11] MEDS: iron polysaccharide complex 150 mg Capsule PO ×2 (09:36→18:04)
[2024-11-11] MEDS: aspirin 325 mg EC Tablet PO (09:36)
[2024-11-11] MEDS: omega-3 fatty acids 1,000 mg Capsule 1000 MG PO (09:36)
[2024-11-11] MEDS: acetaminophen 500 mg Tablet PO ×2 (09:37→18:05)
--- NOTE | 2024-11-11 13:18 | PM.PN ---
Subjective Subjective: Seen today. She was seen with physical therapy today. There is a possibility he may build to go home however safe discharge planning needs to be done. 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 She requires assistance to get out of bed. She will need a recliner. Patient states she does not have a recliner at home. I discussed with her regarding going to rehab for short-term however she would like to discuss with social work program coordinator for making any further decisions. Vitals/I&O/Wt Last Vital Signs Temp 98.3 F 11/11/24 11:20 Pulse 75 11/11/24 11:20 Resp 18 11/11/24 11:20 BP 108/62 11/11/24 11:20 Pulse Ox 96 11/11/24 11:20 O2 Del Method Room Air 11/11/24 11:20 11/10/24 11/11/24 11/11/24 22:59 06:59 14:59 Intake Total 120 / 720 120 / 840 960 / 960 Balance 120 / 720 120 / 840 960 / 960 Weight last 48 hrs Weight 61.734 kg Weight 61.87 kg Physical Exam Narrative: General: No acute distress, AO x3 HEENT: PERRLA, pupils bilaterally equal and reactive, pallors not present Chest: Normal vesicular breath sounds, no added sounds, equal good air entry bilaterally CVS: S1-S2 regular, no murmurs, no tachycardia, no gallops, no rubs Abdomen: Soft, nontender, no organomegaly, bowel sounds present Neuro: No focal deficits, no facial deformity, Urinary Catheter Management: Lorenzana: Cath Placed During This Visit: yes, but has since been removed by the nurse Reason for Continuing Indwelling Catheter: Required Immobilization for Trauma or Surgery or Anesthesia Urinary Catheter Date of Insertion: 11/08/24 Urinary Catheter Time of Insertion: 23:20 Date Urinary Catheter Removed: 11/10/24 Time Urinary Catheter Discontinued: 05:42 Data 11/11/24 02:20 11/11/24 02:20 A&P Assessment and plan (1) Osteopenia: (2) Thyroglobulin antibody positive: (3) Positive TERESSA (antinuclear antibody): (4) Subcapital fracture of right hip: Qualifiers: Encounter type: initial encounter Fracture type: closed Qualified Code(s): S72.011A - Unspecified intracapsular fracture of right femur, initial encounter for closed fracture Plan Right hip fracture Ground-level mechanical fall No syncope or chest pain or seizure related activity Patient very active for her age No preoperative cardiac workup indicated at this point no previous history of [place] CHF diabetes or chronic kidney disease RCRI class I risk Will request an EKG Patient lives alone, active for age N.p.o. for now Opioids with bowel regimen Hemodynamic stable Requested Lorenzana catheter placement as well Chronic history of leukopenia: Currently no signs of neutropenia hemoglobin stable: Platelets 150,000 DVT prophylaxis: SCDs Patient may benefit from bisphosphonates at the time of discharge November 09, 2024 Patient is in the OR currently for bipolar endoprosthetic replacement right hip. Overnight labs and H& P reveiwed. Will attempt to see patient again post opertaively November 10, 2024 Status post hip surgery yesterday. No acute complaints today. States that pain is well-controlled. Requesting Xanax again at night as it helped her sleep well. DVT prophylaxis with aspirin 325 mg p.o. daily. Awaiting physical therapy assessment to ascertain appropriate disposition. 11/11/2024 Patient is status post hip surgery. DVT prophylaxis with aspirin 325 daily. Physical happy to reassess patient later this afternoon. Patient to discussed with social work program coordinator Plan for safe discharge planning. Possible discharge in next 24 hours. PDMP PDMP Reviewed: Not Reviewed Attestations Medical Necessity Statement*: Continued need for assessment by physical therapy, appropriate disposition planning Diagnoses Osteopenia M85.80 Thyroglobulin antibody positive R76.8 Positive TERESSA (antinuclear antibody) R76.8 Subcapital fracture of right hip S72.011A Encounter type: initial encounter Fracture type: closed
[2024-11-11] MEDS: ALPRAZolam 0.5 mg Tablet 0.25 MG PO (21:10)
[2024-11-11] MEDS: chlorhexidine gluconate 0.12% Btl 473 mL 30 ML MUCOUS MEM (21:12)
[2024-11-12 04:13] VITALS: BP 112/68; PULSE 74; RESP 16; TEMP 36.4; O2SAT 96
[2024-11-12 05:34] LABS: Basophils % 0.4 %; Eosinophils # 0.3 10^3/uL (0.0-0.8); Eosinophils % 4.8 %; Hematocrit 31.6 % (36-47); Lymphocytes # 1.6 10^3/uL (0.8-4.8); Lymphocytes % 29.7 %; Mean Corpuscular HGB Conc 33.5 g/dL (30-55); Mean Corpuscular Volume 101.3 fl (85-98); Mean Platelet Volume 10.8 fL (7.4-10.4); Monocytes # 0.4 10^3/uL (0.2-0.9); Monocytes % 7.3 %; Neutrophils # 3.01 10^3/uL (1.8-7.7); Neutrophils % 57.6 %; Nucleated Red Blood Cells % 0 %; Platelet Count 143 10^3/cmm (157-399); Red Blood Count 3.12 10^6/uL (3.85-5.65); Red Cell Distribution Width 12.6 % (12.1-15.1); White Blood Count 5.22 10^3/uL (3.29-11.43)
[2024-11-12 06:10] LABS: Anion Gap 10.1 (5-19); Blood Urea Nitrogen 12 mg/dL (8-23); Calcium 8.7 mg/dL (8.5-10.5); Carbon Dioxide 30 mmol/L (22-29); Chloride 106 mmol/L (98-107); Creatinine Clr Calc Pharmacy 58.1392; Glucose 91 mg/dL (65-115); Osmolality Calculated 293 mOsm/kg (285-295); Potassium 4.1 mmol/L (3.5-5.1); Sodium 142 mmol/L (136-145)
[2024-11-12 08:11] VITALS: BP 105/62; PULSE 72; RESP 17; TEMP 36.6; O2SAT 96
[2024-11-12] MEDS: aspirin 325 mg EC Tablet PO (09:11)
[2024-11-12] MEDS: iron polysaccharide complex 150 mg Capsule PO (09:12)
[2024-11-12] MEDS: multivitamin therapeutic Tablet 1 TAB PO (09:12)
[2024-11-12] MEDS: omega-3 fatty acids 1,000 mg Capsule 1000 MG PO (09:12)
[2024-11-12] MEDS: sennosides-docusate Tablet 2 TAB PO (09:12)
[2024-11-12] MEDS: calcium carbonate 500 mg Chew Tablet 1000 MG PO (09:12)
[2024-11-12] MEDS: cholecalciferol (vitamin D3) 1,000 unit Tablet 1000 UNIT PO (09:12)
[2024-11-12] MEDS: chlorhexidine gluconate 0.12% Btl 473 mL 30 ML MUCOUS MEM (09:13)
[2024-11-12] MEDS: mupirocin oint 22 gm 1 APPLIC NASAL (09:13)
[2024-11-12 10:23] VITALS: PULSE 75; RESP 15; O2SAT 95
--- NOTE | 2024-11-12 10:47 | P.DS_ITS ---
Discharge Providers Date of Admission: 11/08/24 19:20 Date of Discharge: November 12, 2024 Attending Provider at Admission: Milan Puentes MD Attending Provider at Discharge: Reggie Stovall MD Consults: Orthopedic surgery Primary Care Provider: Sana Serrano MD Diagnoses at Discharge Discharge Diagnosis (1) Osteopenia: Status: Acute (2) Thyroglobulin antibody positive: Status: Acute (3) Positive TERESSA (antinuclear antibody): Status: Acute (4) Subcapital fracture of right hip: Status: Acute Qualifiers: Encounter type: initial encounter Fracture type: closed Qualified Code(s): S72.011A - Unspecified intracapsular fracture of right femur, initial encounter for closed fracture Reason for Visit Reason for Visit: fell-right leg pain Hospital Course Hospital Course Arline Ramírez is a very pleasant 74-year-old female who presented with right sided hip pain following mechanical fall, found to have right-sided hip fracture. 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 She worked well with therapy postsurgery. Postacute care was considered but patient ultimately favored to return home with the friend with family and home health support. Patient is being discharged home in stable condition. She will continue rehabilitation via home health therapy. She is to see her primary within 1 week. She is to follow-up in orthopedic clinic. Physical Exam Narrative: General: Patient is awake and alert. Very pleasant. Conversational. Head: Normocephalic. Atraumatic. EOM intact. Neck: No JVD. Cardiovascular: RRR. No gallops. No murmurs. Lungs: Clear to auscultation, no use of accessory muscles, no crackles or wheezes. Skin: No jaundice. No rashes. Abdomen: Normal bowel sounds, abdomen soft and nontender. Extremities: No cyanosis or clubbing. Neurological: Moves all 4 extremities. No myoclonus. Urinary Catheter Management: Lorenzana: Cath Placed During This Visit: yes, but has since been removed by the nurse Reason for Continuing Indwelling Catheter: Required Immobilization for Trauma or Surgery or Anesthesia Urinary Catheter Date of Insertion: 11/08/24 Urinary Catheter Time of Insertion: 23:20 Date Urinary Catheter Removed: 11/10/24 Time Urinary Catheter Discontinued: 05:42 Discharge Data Studies Completed and Pending Completed Studies During Hospitalization Category Date Time Status XR chest 1V portable [id number] Stat Exams 11/08/24 19:10 Completed XR hip RT 2-3V wo/w pel* [id number] Stat Exams 11/08/24 18:23 Completed XR knee RT 3V* [id number] Stat Exams 11/08/24 18:23 Completed XR pelvis 1-2V* [id number] Routine Exams 11/09/24 12:58 Completed XR pelvis 1-2V* [id number] Stat Exams 11/08/24 18:23 Completed Radiology Impressions Hip/Pelvis X-Ray 11/08/24 18:23 IMPRESSION: Subcapital right hip impacted fracture. Knee X-Ray 11/08/24 18:23 IMPRESSION: Moderate to severe tricompartmental osteoarthritis of the knee, greatest in the medial compartment. Chest X-Ray 11/08/24 19:10 IMPRESSION: 1. Negative for infiltrate. 2. Emphysematous changes. Pelvis X-Ray 11/09/24 12:58 IMPRESSION: Interval right hip replacement without complication. Laboratory Results WBC 5.22 10^3/uL (3.29-11.43) 11/12/24 04:45 RBC 3.12 10^6/uL (3.85-5.65) L 11/12/24 04:45 Hgb 10.60 g/dL (11.27-16.99) L 11/12/24 04:45 Hct 31.6 % (36-47) L 11/12/24 04:45 MCV 101.3 fl (85-98) H 11/12/24 04:45 MCH 34.0 pg (27-33) H 11/12/24 04:45 MCHC 33.5 g/dL (30-55) 11/12/24 04:45 RDW 12.6 % (12.1-15.1) 11/12/24 04:45 Plt Count 143 10^3/cmm (157-399) L 11/12/24 04:45 MPV 10.8 fL (7.4-10.4) H 11/12/24 04:45 Neut % (Auto) 57.6 % 11/12/24 04:45 Lymph % (Auto) 29.7 % 11/12/24 04:45 Brantley % (Auto) 7.3 % 11/12/24 04:45 Eos % (Auto) 4.8 % 11/12/24 04:45 Baso % (Auto) 0.4 % 11/12/24 04:45 Neut # (Auto) 3.01 10^3/uL (1.8-7.7) 11/12/24 04:45 Lymph # (Auto) 1.6 10^3/uL (0.8-4.8) 11/12/24 04:45 Brantley # (Auto) 0.4 10^3/uL (0.2-0.9) 11/12/24 04:45 Eos # (Auto) 0.3 10^3/uL (0.0-0.8) 11/12/24 04:45 Baso # (Auto) 0.0 10^3/uL (0.0-0.1) 11/12/24 04:45 Nucleated RBC % (auto) 0 % 11/12/24 04:45 Nucleated RBCs # 0.0 /100WBC 11/12/24 04:45 Sodium 142 mmol/L (136-145) 11/12/24 04:45 Potassium 4.1 mmol/L (3.5-5.1) 11/12/24 04:45 Chloride 106 mmol/L (98-107) 11/12/24 04:45 Carbon Dioxide 30 mmol/L (22-29) H 11/12/24 04:45 Anion Gap 10.1 (5-19) 11/12/24 04:45 BUN 12 mg/dL (8-23) 11/12/24 04:45 Creatinine 0.5 mg/dL (0.5-0.9) 11/12/24 04:45 GFR Calculation Not Reportable 11/12/24 04:45 Glucose 91 mg/dL (65-115) 11/12/24 04:45 Calculated Osmolality 293 mOsm/kg (285-295) 11/12/24 04:45 Calcium 8.7 mg/dL (8.5-10.5) 11/12/24 04:45 Magnesium 1.7 mg/dL (1.7-2.3) 11/09/24 04:24 Total Bilirubin 0.4 mg/dL (0.15-1.2) 11/11/24 02:20 AST 20 U/L (0-32) 11/11/24 02:20 ALT < 5 U/L (0-33) 11/11/24 02:20 Alkaline Phosphatase 59 U/L (35-105) 11/11/24 02:20 Total Protein 5.5 g/dL (6.6-8.7) L 11/11/24 02:20 Albumin 3.1 g/dL (3.5-5.2) L 11/11/24 02:20 Globulin 2.4 g/dL (1.3-4.6) 11/11/24 02:20 Urine Color Yellow (Yellow) 11/08/24 23:23 Urine Appearance Clear (CLEAR) 11/08/24 23:23 Urine pH 5.5 (5-7) 11/08/24 23:23 Ur Specific Ewing 1.027 (1.005-1.030) 11/08/24 23:23 Urine Protein Negative (Negative) 11/08/24 23:23 Urine Glucose (UA) Negative (Normal) 11/08/24 23:23 Urine Ketones 1+ (Negative) H 11/08/24 23:23 Urine Blood Negative (Negative) 11/08/24 23:23 Urine Nitrate Negative (Negative) 11/08/24 23:23 Urine Bilirubin Negative (Negative) 11/08/24 23:23 Urine Urobilinogen 1.0 mg/dL (Negative) 11/08/24 23:23 Ur Leukocyte Esterase Negative (Negative) 11/08/24 23:23 Urine RBC 0-2 /hpf (0-2) 11/08/24 23:23 Urine WBC 0-5 /hpf (0-5) 11/08/24 23:23 Ur Squamous Epith Cells 0-5 /hpf (0-5) 11/08/24 23:23 Amorphous Sediment Not Reportable 11/08/24 23:23 Urine Bacteria None seen /hpf (NONE) 11/08/24 23:23 Hyaline Casts 2.05 /lpf 11/08/24 23:23 Urine Mucus 2+ /hpf 11/08/24 23:23 Procedures Performed Bipolar endoprosthetic replacement right hip Vitals Last Vital Signs Temp 97.8 F 11/12/24 08:11 Pulse 75 11/12/24 10:23 Resp 15 11/12/24 10:23 BP 105/62 11/12/24 08:11 Pulse Ox 95 11/12/24 10:23 O2 Del Method Room Air 11/12/24 10:23 Discharge Plan Discharge Patient Disposition: Home Health Service Condition: Stable Prescriptions: New hydrocodone-acetaminophen 5-325 mg Tablet 1 tab PO Q4H PRN (Reason: Moderate Pain) Qty: 30 0RF aspirin 325 mg Tablet,Delayed Release (Dr/Ec) 325 mg PO DAILY 30 Days Qty: 30 0RF sennosides-docusate sodium [Stool Softener-Laxative] 8.6-50 mg Tablet 2 tab PO BID 30 Days Qty: 120 0RF Continued omega 3-jcm-xtl-fish oil [Fish Oil] 60-90-500 mg capsule 1 cap PO DAILY cholecalciferol (vitamin D3) 50 mcg (2,000 unit) capsule 50 mcg PO DAILY Discharge Orders: Discharge Order (Routine); Ordered 11/12/24 Ordered By: Reggie Stovall Other Ambulatory Orders: DME: Jorge (Order) Location: None Selected Ordered By: Kelley Chambers Referrals: Jesús Sawant MD [Physician] - 2 weeks Sana Serrano MD [Primary Care Provider] - 4-7 days Discharge Diet: Advance as tolerated and Usual diet Discharge Activity: Increase activity as tolerated and Limit activity as instructed Patient Instructions: Acute Wound Care (DC), Opioid Safety, Post Anesthesia Care, Pain Management Activity Restrictions/Additional Instructions: Take medications as prescribed. No driving operating machinery while on opioid pain medications. Continue stool softeners, monitor for constipation. Follow-up with primary care within 1 week. Follow-up with orthopedic clinic. Discharge Attestations Time Spent in Discharge Care*: greater than 30 min Quality Metrics Clinical Quality Measures [ No reported AMI, CVA or VTE this stay] Coding Level of Care Code Acute Code for Chg Fwd Diagnoses Osteopenia M85.80 Thyroglobulin antibody positive R76.8 Positive TERESSA (antinuclear antibody) R76.8 Subcapital fracture of right hip S72.011A Encounter type: initial encounter Fracture type: closed
[2024-11-12] MEDS: acetaminophen 500 mg Tablet PO (11:10)
[2024-11-12 11:16] VITALS: BP 102/62; PULSE 63; RESP 18; TEMP 36.6; O2SAT 91
== END 2024-11-12 14:20 | disposition home health service (06) | DRG 522 ==
LOC: ER 19:10 → MEDSURG 19:54
PROVIDERS: Internal Medicine; Orthopaedic Surgery; Student in an Organized Health Care Education/Training Program; Admitting Provider Internal Medicine; Emergency Provider Nurse Practitioner Family; PCP Family Medicine; Visit Provider Internal Medicine
PROC: (CPT 27125; principal; 2024-11-09 11:00)
DX: S72.011A Unspecified intracapsular fracture of right femur, initial encounter for closed fracture (principal); R76.8 Other specified abnormal immunological findings in serum; M85.80 Other specified disorders of bone density and structure, unspecified site; E86.0 Dehydration; W11.XXXA Fall on and from ladder, initial encounter
CPT/HCPCS: 36415; 51702; 71045; 72170; 73502; 73562; 80048; 80053; 81001; 83735; 85025; 93005; 97116; 97161; 97165; 97530; 97535; 99285; C1776; J0330; J0690; J1100; J1171; J1885; J2405; J2704; J3010; J3490; J9999

== ENCOUNTER → 2024-11-25 08:28 | Outpatient (BNVA) | payer MEDICARE, SELFPAY | PROVIDERS: PCP Family Medicine; Visit Provider Orthopaedic Surgery | DX: S72.011D Unspecified intracapsular fracture of right femur, subsequent encounter for closed fracture with routine healing (principal); X58.XXXD Exposure to other specified factors, subsequent encounter | CPT/HCPCS: 73502; 99024 ==

== ENCOUNTER → 2024-12-03 13:35 | Outpatient (BNVA) | payer MEDICARE, SELFPAY | PROVIDERS: PCP Family Medicine; Visit Provider Nurse Practitioner Family | DX: D22.62 Melanocytic nevi of left upper limb, including shoulder (principal); L81.4 Other melanin hyperpigmentation; L57.8 Other skin changes due to chronic exposure to nonionizing radiation; L82.1 Other seborrheic keratosis; Z80.8 Family history of malignant neoplasm of other organs or systems; L82.0 Inflamed seborrheic keratosis; L29.89 Other pruritus; R20.8 Other disturbances of skin sensation; L53.8 Other specified erythematous conditions; Z78.9 Other specified health status; L57.0 Actinic keratosis | CPT/HCPCS: 17000; 17110; 99213 ==

== ENCOUNTER → 2024-12-31 12:26 | Outpatient (BNVA) | payer MEDICARE, SELFPAY | PROVIDERS: PCP Family Medicine; Visit Provider Family Medicine | DX: R30.0 Dysuria (principal) | CPT/HCPCS: 81000 ==

== ENCOUNTER → 2025-01-28 07:53 | Outpatient (BNVA) | payer MEDICARE, SELFPAY | PROVIDERS: PCP Family Medicine; Visit Provider Orthopaedic Surgery | DX: Z98.890 Other specified postprocedural states (principal) | CPT/HCPCS: 99024 ==

== ENCOUNTER → 2025-05-23 14:09 | Outpatient (BNVA) | payer MEDICARE, SELFPAY | PROVIDERS: PCP Family Medicine; Visit Provider Nurse Practitioner Family | DX: L91.8 Other hypertrophic disorders of the skin (principal); L82.1 Other seborrheic keratosis; L81.4 Other melanin hyperpigmentation; L57.8 Other skin changes due to chronic exposure to nonionizing radiation; Z80.8 Family history of malignant neoplasm of other organs or systems; L82.0 Inflamed seborrheic keratosis; Z78.9 Other specified health status; R20.8 Other disturbances of skin sensation; L29.89 Other pruritus; L57.0 Actinic keratosis | CPT/HCPCS: 17000; 17110; 99213 ==

== ENCOUNTER 2025-06-02 14:47 | Outpatient (CLI) | payer MEDICARE, SELFPAY ==
--- NOTE | 2025-06-02 14:52 | MM_ITS ---
WS: [id number] BILATERAL 3D TOMOSYNTHESIS DIGITAL SCREENING MAMMOGRAPHY WITH CAD CLINICAL INFORMATION: SCREEN HISTORY: Screening mammogram. No current complaints. COMPARISON: 2019 TECHNIQUE: Bilateral CC and MLO views. FINDINGS: Scattered fibroglandular densities bilaterally. No suspicious focal mass, asymmetry, calcifications, or architectural distortion. No evidence of malignancy. Vascular calcification. MM/MM scr BI tomosynthesis [id number] IMPRESSION: DENSITY: There are scattered areas of fibroglandular density. BI-RADS: 2 - Benign. FOLLOW UP: 1 Year Follow-up Recommend return to annual screening mammography.
== END 2025-06-02 14:48 | disposition home or self-care (01) ==
LOC: RAD 14:48
PROVIDERS: PCP Family Medicine; Visit Provider Family Medicine
DX: Z12.31 Encounter for screening mammogram for malignant neoplasm of breast (principal); R92.323 Mammographic fibroglandular density, bilateral breasts; R92.1 Mammographic calcification found on diagnostic imaging of breast
CPT/HCPCS: 77063; 77067

== ENCOUNTER 2025-06-27 15:08 | Outpatient (CLI) | payer MEDICARE, SELFPAY ==
--- NOTE | 2025-06-27 15:30 | XR_ITS ---
WS: [id number] SCREENING DEXA SCAN [employer] CLINICAL INFORMATION: osteoporosis screening COMPARISON: 2022 FINDINGS: The L1-L4 bone mineral density measures 1.180 g/cm2. This corresponds to a T score score of 0.0 and Z score of 1.9. Left femoral neck bone mineral density measures 0.969 (g/cm2). This corresponds to a T score of -0.3 (no units) and Z score of 1.5 (no units). XR/XR DEXA axial skeleton* [id number] IMPRESSION: Normal bone mineralization lumbar spine and LEFT femoral neck. Patient's FRAX calculated 10 year probability for major osteoporotic fracture i s 14.8% and osteoporotic hip fracture is 3.0%. Bone density lumbar spine increased 1.2% Bone density LEFT femoral neck decrease -0.9%
== END 2025-06-27 15:09 | disposition home or self-care (01) ==
LOC: RAD 15:10
PROVIDERS: PCP Family Medicine; Visit Provider Family Medicine
DX: Z13.820 Encounter for screening for osteoporosis (principal); Z78.0 Asymptomatic menopausal state
CPT/HCPCS: 77080